=== PATIENT | male | born 1940 | race Caucasian/White ===

== ENCOUNTER → 2017-12-17 10:41 | Outpatient (CLI) | payer OTHER, SELFPAY ==
[2017-12-17 12:03] LABS: Alanine Aminotransferase 132 IU/L (21-72); Albumin 4.1 g/dL (3.5-5.0); Albumin Globulin Ratio 1.2 (1.0-2.8); Alkaline Phosphatase 97 U/L (38-126); Aspartate Aminotransferase 119 IU/L (17-59); BUN Creatinine Ratio 21.2 (6-22); Bilirubin Total 0.5 mg/dL (0.2-1.3); Blood Urea Nitrogen 36 mg/dL (9-20); Carbon Dioxide 29 mmol/L (22-32); Chloride 102 mmol/L (98-107); Estimated Glomerular Filt Rate 39.2 mL/min (>60); Globulin 3.3 g/dL (1.7-4.1); Glucose 102 mg/dL (80-110); HEMOLYSIS 17 (0-50); Potassium 4.7 mmol/L (3.4-5.1); Sodium 140 mmol/L (137-145); Total Protein 7.4 g/dL (6.3-8.2)
== END ==
PROVIDERS: Family Provider Internal Medicine; PCP Internal Medicine; Visit Provider Internal Medicine
DX: E11.9 Type 2 diabetes mellitus without complications (principal); E78.2 Mixed hyperlipidemia; I25.10 Atherosclerotic heart disease of native coronary artery without angina pectoris
CPT/HCPCS: 36415; 80053; 83036

== ENCOUNTER → 2018-06-17 11:09 | Outpatient (CLI) | payer OTHER, SELFPAY ==
[2018-06-17 12:03] LABS: Hemoglobin A1C% w Est Avg Glu 5.5 % (4.0-6.0)
[2018-06-17 12:20] LABS: Alanine Aminotransferase 125 IU/L (21-72); Albumin Globulin Ratio 1.3 (1.0-2.8); Alkaline Phosphatase 88 U/L (38-126); Aspartate Aminotransferase 103 IU/L (17-59); BUN Creatinine Ratio 26.3 (6-22); Bilirubin Total 0.5 mg/dL (0.2-1.3); Blood Urea Nitrogen 42 mg/dL (9-20); Calcium 9.7 mg/dL (8.4-10.2); Carbon Dioxide 27 mmol/L (22-32); Chloride 102 mmol/L (98-107); Cholesterol 146 mg/dL (140-199); Globulin 3.2 g/dL (1.7-4.1); Glucose 101 mg/dL (80-110); HDL Cholesterol 30 mg/dL (40-60); HEMOLYSIS < 15 (0-50); LDL Cholesterol Calculated 98 mg/dL (<100); Potassium 4.7 mmol/L (3.4-5.1); Sodium 138 mmol/L (137-145); Total Protein 7.2 g/dL (6.3-8.2); Triglycerides 91 mg/dL (35-150)
[2018-06-19 18:18] LABS: PSA Post Prostatectomy <0.02 ng/mL
== END ==
PROVIDERS: PCP Internal Medicine; Visit Provider Internal Medicine
DX: E11.9 Type 2 diabetes mellitus without complications (principal); E78.2 Mixed hyperlipidemia; I25.10 Atherosclerotic heart disease of native coronary artery without angina pectoris; C61 Malignant neoplasm of prostate
CPT/HCPCS: 36415; 80053; 80061; 83036; 84153

== ENCOUNTER → 2018-10-31 15:24 | Outpatient (CLI) | payer OTHER, SELFPAY ==
[2018-10-31 15:38] LABS: RBC Urine None Seen (0-5/HPF)
[2018-10-31 15:50] LABS: Appearance Urine UA CLEAR; Bilirubin Urine UA NEGATIVE (NEGATIVE); Color Urine UA YELLOW; Glucose Urine UA NEGATIVE (Negative); Ketones Urine UA NEGATIVE (NEGATIVE); Leukocyte Esterase Urine UA 1+ (NEGATIVE); Nitrite Urine UA NEGATIVE (Negative); Occult Blood Urine UA NEGATIVE (Negative); Protein Urine UA NEGATIVE (Negative); Urobilinogen Urine UA 0.2 E.U./dL (0.2); pH Urine UA 6.5 (4.5-8.0)
[2018-10-31 16:11] LABS: Bacteria Urine Many (>30); Culture Indicated Urine Specimen Cultured; Squamous Epithelial Cell Urine 0-1 /HPF (0-5/HPF); WBC Urine 10-30/HPF (0-5/HPF)
== END ==
PROVIDERS: PCP Internal Medicine; Visit Provider Internal Medicine
DX: R30.0 Dysuria (principal)
CPT/HCPCS: 81001; 87077; 87086; 87186

== ENCOUNTER 2018-12-23 19:36 | Emergency (ER) | payer OTHER, SELFPAY ==
[2018-12-23] VITALS (12 sets, daily range): BP systolic 111–140; BP diastolic 38–75; PULSE 58–76; RESP 12–18; TEMP 36.3–36.8; O2SAT 93–100
--- NOTE | 2018-12-23 19:36 | ED.GIBLEED ---
HPI - GI Bleed General Chief complaint: GI Bleed Stated complaint: Vomiting Blood & Chest PX Time Seen by Provider: 12/23/18 19:36 Source: patient Mode of arrival: Ambulatory Limitations: no limitations History of Present Illness HPI Narrative: 78-year-old male comes to the emergency department with complaint of vomiting blood. Patient states he had an episode last night and has continued to have several episodes overnight. He has also had diarrhea with what he describes as black stool. He states it his emesis was black as well. Patient denies any syncope he felt maybe a little bit lightheaded potentially a little bit off balance. He denies any chest pressure or pain currently but states he did have some earlier. He states he gets chest pain every single day and he takes isosorbide and that makes better overnight. He states that this was his typical chest pain that he gets every single day. He took his using nitro and he states it resolved. He denies any shortness of breath, he denies any nausea at this moment. He denies any abdominal pain. patient states he contacted 911 because he was concerned if he continued to vomit and have bloody stools overnight he might be too weak to contact them in the morning. Patient takes an aspirin 324 mg daily. He denies any other blood thinners. He has had a CABG about 20 years ago, he takes blood pressure and cholesterol medication. He also takes metformin. Patient is not aware of any history of GI bleeds or peptic ulcers. States he used to smoke quit 30 years ago, drinks 1 alcoholic drink monthly and denies illicit. He has had prostate surgery as well and a left carotid endarterectomy. Related Data Home Medications Medication Instructions Recorded Confirmed [FOLIC ACID] 400 mcg PO DAILY #0 11/23/10 12/05/18 aspirin 325 mg PO QDAY #0 06/16/12 12/05/18 atenolol 100 mg PO DAILY 12/23/18 12/23/18 hydrochlorothiazide 25 mg PO DAILY 12/23/18 12/23/18 losartan 100 mg PO DAILY 12/23/18 12/23/18 nitroglycerin [Nitrostat] 0.4 mg SUBLINGUAL Q5M PRN 12/23/18 12/23/18 trazodone 50 mg PO BEDTIME 12/23/18 12/23/18 Previous Rx's Medication Instructions Recorded Glucose: Test Strips str TOPICAL Q DAY #50 06/17/17 isosorbide mononitrate 10 - 15 mg PO QAM #30 tab 06/17/17 metformin 500 mg tablet 500 mg PO BIDCC #180 tab 12/16/17 zolpidem 5 mg tablet 5 mg PO HS PRN #30 tab 09/19/18 lisinopril 20 mg tablet 40 mg PO BID #360 tab 11/25/18 valsartan 160 mg tablet 160 mg PO DAILY #30 tab 12/05/18 Allergies Allergy/AdvReac Type Severity Reaction Status Date / Time amlodipine AdvReac Mild hip pain, Verified 12/05/18 08:43 leg pain, edema feet hands atorvastatin AdvReac Mild JOINT PAIN Verified 12/05/18 08:43 Plavix? Allergy Severe BODY Uncoded 12/05/18 08:43 SHAKES Review of Systems Review of Systems ROS Unobtainable: All systems reviewed & are unremarkable except as noted in HPI and below Constitutional Constitutional: Denies chills, Denies fever(s), Denies lethargy and Reports weakness Cardiovascular Cardiovascular: Reports chest pain (Resolved), Denies diaphoresis, Denies syncope, Denies edema, Denies irregular heart rhythm, Reports lightheadedness, Denies palpitations, Denies dyspnea, Denies dyspnea on exertion and Denies orthopnea Respiratory Respiratory: Denies change in phlegm color, Denies chest congestion, Denies cough, Denies hemoptysis, Denies dyspnea and Denies dyspnea on exertion Gastrointestinal Gastrointestinal: Denies abdominal pain, Reports melena, Denies change in bowel habits, Denies constipation, Reports diarrhea, Denies nausea, Reports vomiting and Reports hematemesis (Black in color) Genitourinary Genitourinary: Denies hematuria, Denies dysuria, Denies flank pain, Denies urinary frequency, Denies urinary incontinence and Denies urinary urgency Musculoskeletal Musculoskeletal: Denies back pain Neurologic Neurologic: Denies syncope and Reports weakness Endocrine Endocrine: Denies palpitations Patient History Medical History Abnormal liver function tests (Chronic 11/23/10) Benign prostatic hyperplasia (Chronic 11/23/10) Coronary artery disease involving [place] coronary artery of [place] heart without angina pectoris (Chronic) Essential hypertension (Chronic 12/29/15) Malignant neoplasm of prostate (Chronic 06/17/17) Mixed hyperlipidemia (Chronic) Type 2 diabetes mellitus without complication (Chronic 09/29/13) Uncontrolled type 2 diabetes mellitus (Chronic 05/08/13) Surgical History History of carotid endarterectomy (Resolved ~10/2015) Status post coronary artery bypass graft (~2002) Status post radical cystoprostatectomy (~07/2012) Social History marital status: number of children: 1 household members: none lives independently: Yes caregiver/support person: No housing: house pets and animals: No education level: high school occupational status: other 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 HEENT: Atraumatic, pupils are equal round reactive to light, extraocular movements are intact, positive conjunctival pallor, nares are clear. Throat is clear without any exudates, erythema, tonsillar enlargement or uvular deviation HEART: Regular rate and rhythm without murmur, clicks, rubs. Pulses are equal in upper and lower extremities LUNGS:Lungs clear to auscultation, no wheezes, rales, crackles, chest moves symmetrically ABD:bowel sounds normal, soft, non-tender, no guarding, rebound, rigidity, no masses noted, no hepatosplenomegaly, stool occult is positive. Patient has melanotic stool on exam. No mass noted. :No CVA tenderness MSCL: Non-tender, no muscle atrophy, muscles strength 5/5 upper and lower extremities, full range of motion, normal gait NEURO:CN 2-12 intact, sensation normal, reflexes 2/4 upper and lower extremities. finger nose finger test normal, heel sandoval test normal, romberg normal Initial Vital Signs Initial Vital Signs: Vital Signs Temperature 97.6 F 12/23/18 19:48 Pulse Rate 76 12/23/18 19:48 Respiratory Rate 18 12/23/18 19:48 Blood Pressure 111/75 12/23/18 19:48 Pulse Oximetry 100 12/23/18 19:48 Course Orders Ordered: ED Orders 12/23/18 19:28 Complete Blood Count AUTO DIFF Stat Comprehensive Metabolic Panel Stat Lipase Stat Packed Cells Stat Partial Thromboplastin Time Stat Prothrombin Time INR Stat Troponin I Stat Type and Screen Stat 12/23/18 19:52 XR acute abdomen series Stat Discontinued Medications Sodium Chloride (Normal Saline 0.9%) 1,000 mls @ 150 mls/hr IV CONT KRISTINA Last Infusion: 12/23/18 23:34 Dose: 0 mls/hr Documented by: Admin: 12/23/18 20:05 Dose: 150 mls/hr Documented by: GLORIA Pantoprazole Sodium 80 mg/ (Sodium Chloride) 100 mls @ 10 mls/hr IV CONT KRISTINA Last Infusion: 12/23/18 23:35 Dose: 0 mg/hr, 0 mls/hr Documented by: Admin: 12/23/18 20:31 Dose: 8 mg/hr, 10 mls/hr Documented by: GLORIA Ondansetron HCl (Zofran) 4 mg IV NOW ONE Stop: 12/23/18 19:53 Last Admin: 12/23/18 20:04 Dose: 4 mg Documented by: GLORIA Pantoprazole Sodium (Protonix) 80 mg IV NOW ONE Stop: 12/23/18 19:53 Last Admin: 12/23/18 20:04 Dose: 80 mg Documented by: GLORIA Vital Signs Vital signs: Vital Signs - 8 hr 12/23/18 19:48 12/23/18 20:00 12/23/18 20:27 Temperature 97.6 F Pulse Rate 76 68 66 Respiratory Rate 18 18 18 Blood Pressure 111/75 Blood Pressure [Left Wrist] 122/45 L 118/45 L Pulse Oximetry 100 93 100 12/23/18 21:05 12/23/18 21:12 12/23/18 21:13 Temperature 97.5 F L 97.4 F L 97.5 F L Pulse Rate 62 60 61 Respiratory Rate 16 16 18 Blood Pressure 113/42 L 120/38 L Blood Pressure [Left Wrist] 113/42 L Pulse Oximetry 100 12/23/18 21:20 12/23/18 22:03 12/23/18 22:30 Temperature 97.4 F L 97.6 F Pulse Rate 58 L 60 61 Respiratory Rate 16 16 13 Blood Pressure 114/42 L Blood Pressure [Left Wrist] 126/47 L 140/51 L Pulse Oximetry 100 100 12/23/18 22:52 12/23/18 23:07 12/23/18 23:20 Temperature 97.9 F 98.3 F Pulse Rate 62 60 62 Respiratory Rate 16 12 18 Blood Pressure 140/51 L 127/48 L Blood Pressure [Left Wrist] 123/50 L Pulse Oximetry 100 MDM - GI Bleed Lab Data Attestation: I reviewed the patient's lab results. Result diagrams: 12/23/18 19:28 12/23/18 19:28 Labs: Lab Results 12/23/18 12/23/18 12/23/18 Range/Units 19:28 19:28 19:28 WBC 10.3 (4.5-11.0) X10^3/uL RBC 2.58 L (4.5-5.9) X10^6/uL Hgb 7.7 L (13.5-17.5) g/dL Hct 23.3 L (41-53) % MCV 90.2 (80-100) fL MCH 30.0 (26-34) PG MCHC 33.2 (30-36) % RDW 15.9 H (11.6-14.8) % Plt Count 125 L (150-400) X10^3/uL Neut % (Auto) 44.3 L (50-75) % Lymph % (Auto) 44.9 H (25-40) % [place] % (Auto) 10.0 (3-14) % Eos % (Auto) 0.3 L (2-4) % Baso % (Auto) 0.5 (0-2) % Neut # (Auto) 4600 (7101-6031) /uL Lymph # (Auto) 4600 H (4201-2965) /uL [place] # (Auto) 1000 H (0-900) /uL Eos # (Auto) 0 (0-450) /uL Baso # (Auto) 100 (0-100) /uL PT 10.7 (10.1-12.7) SECONDS INR 0.9 (0.9-1.3) APTT 28 (26.4-36.2) SECONDS Sodium (137-145) mmol/L Potassium (3.4-5.1) mmol/L Chloride (98-107) mmol/L Carbon Dioxide (22-32) mmol/L BUN (9-20) mg/dL Creatinine (0.66-1.25) mg/dL Estimated GFR (>60) mL/min BUN/Creatinine Ratio (6-22) Glucose (80-110) mg/dL Calcium (8.4-10.2) mg/dL Total Bilirubin (0.2-1.3) mg/dL AST (17-59) IU/L ALT (21-72) IU/L Alkaline Phosphatase (38-126) U/L Troponin I (0.01-0.034) ng/mL Total Protein (6.3-8.2) g/dL Albumin (3.5-5.0) g/dL Globulin (1.7-4.1) g/dL Albumin/Globulin Ratio (1.0-2.8) Lipase 274 (23-300) U/L Blood Type Antibody Screen Crossmatch 12/23/18 12/23/18 12/23/18 Range/Units 19:28 19:28 19:28 WBC (4.5-11.0) X10^3/uL RBC (4.5-5.9) X10^6/uL Hgb (13.5-17.5) g/dL Hct (41-53) % MCV (80-100) fL MCH (26-34) PG MCHC (30-36) % RDW (11.6-14.8) % Plt Count (150-400) X10^3/uL Neut % (Auto) (50-75) % Lymph % (Auto) (25-40) % [place] % (Auto) (3-14) % Eos % (Auto) (2-4) % Baso % (Auto) (0-2) % Neut # (Auto) (1338-8684) /uL Lymph # (Auto) (8118-4081) /uL [place] # (Auto) (0-900) /uL Eos # (Auto) (0-450) /uL Baso # (Auto) (0-100) /uL PT (10.1-12.7) SECONDS INR (0.9-1.3) APTT (26.4-36.2) SECONDS Sodium 136 L (137-145) mmol/L Potassium 4.4 (3.4-5.1) mmol/L Chloride 102 (98-107) mmol/L Carbon Dioxide 23 (22-32) mmol/L BUN 90 H (9-20) mg/dL Creatinine 2.20 H (0.66-1.25) mg/dL Estimated GFR 29.0 L (>60) mL/min BUN/Creatinine Ratio 40.9 H (6-22) Glucose 174 H (80-110) mg/dL Calcium 9.7 (8.4-10.2) mg/dL Total Bilirubin 0.3 (0.2-1.3) mg/dL AST 71 H (17-59) IU/L ALT 73 H (21-72) IU/L Alkaline Phosphatase 81 (38-126) U/L Troponin I 0.146 H* (0.01-0.034) ng/mL Total Protein 6.6 (6.3-8.2) g/dL Albumin 3.5 (3.5-5.0) g/dL Globulin 3.1 (1.7-4.1) g/dL Albumin/Globulin Ratio 1.1 (1.0-2.8) Lipase (23-300) U/L Blood Type O Positive Antibody Screen Negative Crossmatch See Detail Point of Care Testing Stool Occult Blood Positive ECG Data Attestation: I personally reviewed and interpreted this ECG as follows: Prior ECG tracings: available for review Interpretation: Sinus rhythm kill PVCs, right bundle branch block. Rate of 74 P are 199 QRS of 147 QTC of 467. The patient does appear to have some depression in 1 aVL as well as 5 6 which does appear different from prior EKGs. Patient has a right bundle branch block on his 07/07/2016 EKG. Patient does appear to have some elevation in AVR this does appear somewhat similar to prior EKG. [facility] Narrative Medical decision making narrative: Patient comes in with EKG changes some which do appear new, this could potentially be demand ischemia from his known coronary artery disease drop in hemoglobin which was 12.7 on July 07, 2016 at 7.7 today. Patient did try to stand up and had a near syncopal episode in the department. Platelets are 125. Patient's BUN is 90 which is elevated from his normal range of 30-40. Creatinine is also elevated at 2.2 looks like his baseline is closer to 1.7 patient's glucose is 174. AST ALT are slightly elevated at 71 and 73, alk-phos and bilirubin are normal with a normal lipase. Troponin is positive. this may be secondary to demand ischemia patient was not giving any anticoagulation as he has clearly dropped his hemoglobin has positive rectal bleeding. Patient will likely need Gastroenterology which we do not have available here and may also need cardiology based on his EKG changes and troponin and likely demand ischemia. Patient has 2 units PRBCs ordered. Continuing with slow fluids and patient started on initially Protonix 80 mg and then a drip. I spoke with Dr. Juarez at [facility] and telling him, he would like me to speak with gastroenterology with Dr. Hoyt. Patient case was discussed that he is having demand ischemia secondary to his GI bleed. Discussed he has had Protonix as well as Protonix drip started and is receiving blood at this time. Spoke with Dr. Hoyt, she states that the patient was seen by Dr. David Perry since in 2001 and that that would be the other Gastroenterology group and she asked me to speak with Dr. De Jesus who was at [phone] I spoke with Dr. De Jesus, he states he is happy to see the patient but would like to chat with the hospitalist to see if they would like for him to see the patient tonight or 1st thing in the morning. Dr. wan states that he will chat with Dr. Juarez to clarify. Discussed with patient and updated he is comfortable with plan. Patient has received the 1st unit of blood in the department, blood pressure is been in the 120s with a rate of 60. Second unit has been started. Patient has been hemodynamically stable. Critical Care Time Critical Care Time Critical Care Time: Yes Total Critical Care Time: 75 Attestation: The high probability of a clinically significant, sudden or life threatening deterioration of the [cardiac/gi] system(s) required my full and direct attention, intervention and personal management. The aggregate critical care time was [75] minutes. This time is in addition to time spent performing reported procedures but includes the following: [x] Data Review and interpretation xPatient assessment and monitoring of vital signs [x] Documentation [x] Medication orders and management Discharge Plan [facility]: Acute GI bleeding, Demand ischemia, Symptomatic anemia Discharge Date/Time: 12/23/18 23:38 Prescriptions: No Action [FOLIC ACID] 400 mcg PO DAILY Qty: 0 RF: 0 aspirin 325 MG tablet,delayed release (DR/EC) 325 mg PO QDAY Qty: 0 RF: 0 isosorbide mononitrate 30 MG tablet extended release 24 hr 10 - 15 mg PO QAM Qty: 30 RF: 11 Glucose: Test Strips Topical Q DAY Qty: 50 RF: 6 lisinopril 20 mg tablet 40 mg PO BID Qty: 360 RF: 1 metformin [Glucophage] 500 mg tablet 500 mg PO BIDCC Qty: 180 RF: 3 zolpidem 5 mg tablet 5 mg PO HS PRN (Reason: insomnia) Qty: 30 RF: 1 valsartan 160 mg tablet 160 mg PO DAILY Qty: 30 RF: 8 nitroglycerin [Nitrostat] 0.4 mg Tablet, Sublingual 0.4 mg SUBLINGUAL Q5M PRN (Reason: Chest Pain) RF: 0 trazodone 50 mg PO BEDTIME RF: 0 atenolol 100 mg Tablet 100 mg PO DAILY RF: 0 losartan 100 mg PO DAILY RF: 0 hydrochlorothiazide 25 mg Tablet 25 mg PO DAILY RF: 0 Referrals: Dimas Hahn MD [Primary Care Provider] -
--- NOTE | 2018-12-23 19:52 | DI.RAD.S_ITS ---
PROCEDURE: XR ACUTE ABDOMEN SERIES INDICATIONS: melena, vomiting black blood TECHNIQUE: One view chest and two views of the abdomen were acquired. COMPARISON: None. FINDINGS: Surgical changes and devices: Patient is status post median sternotomy. Surgical clips are projected over the inferior pelvis. Chest: Lungs are clear. Heart size is normal. No pleural effusions. No pneumoperitoneum. Abdomen: Bowel gas pattern is normal. No suspicious calcifications. Visualized solid organ contours appear normal. Bones: No suspicious bony lesions. IMPRESSION: No acute cardiopulmonary findings. No acute abdominal findings. Dictated by: Erika Raymond M.D. on 12/23/2018 at 20:27 Approved by: Erika Raymond M.D. on 12/23/2018 at 20:30
[2018-12-23 20:02] LABS: Add Manual Diff / Slide Review NO; Basophils Absolute Auto 100 /uL (0-100); Basophils Percent Auto 0.5 % (0-2); Eosinophils Absolute Auto 0 /uL (0-450); Eosinophils Percent Auto 0.3 % (2-4); Hematocrit 23.3 % (41-53); Hemoglobin 7.7 g/dL (13.5-17.5); Lymphocytes Absolute Auto 4600 /uL (1100-4500); Lymphocytes Percent Auto 44.9 % (25-40); Mean Corpuscular HGB Conc 33.2 % (30-36); Mean Corpuscular Volume 90.2 fL (80-100); Monocytes Absolute Auto 1000 /uL (0-900); Neutrophils Absolute Auto 4600 /uL (1500-7000); Neutrophils Percent Auto 44.3 % (50-75); Platelet Count 125 X10^3/uL (150-400); Red Blood Cell Count 2.58 X10^6/uL (4.5-5.9); Red Cell Distribution Width 15.9 % (11.6-14.8); White Blood Cell Count 10.3 X10^3/uL (4.5-11.0)
[2018-12-23 20:03] LABS: INR 0.9 (0.9-1.3); Prothrombin Time 10.7 SECONDS (10.1-12.7)
[2018-12-23] MEDS: PANTOPRAZOLE 40 MG VIAL 80 MG IV (20:04)
[2018-12-23] MEDS: ONDANSETRON 4 MG/2 ML INJ IV (20:04)
[2018-12-23] MEDS: SODIUM CHLORIDE 0.9% 1,000 ML 150 ML IV (20:05)
[2018-12-23 20:06] LABS: PTT Partial Thromboplastin Tim 28 SECONDS (26.4-36.2)
[2018-12-23 20:08] LABS: Alanine Aminotransferase 73 IU/L (21-72); Albumin 3.5 g/dL (3.5-5.0); Albumin Globulin Ratio 1.1 (1.0-2.8); Alkaline Phosphatase 81 U/L (38-126); Aspartate Aminotransferase 71 IU/L (17-59); BUN Creatinine Ratio 40.9 (6-22); Bilirubin Total 0.3 mg/dL (0.2-1.3); Blood Urea Nitrogen 90 mg/dL (9-20); Calcium 9.7 mg/dL (8.4-10.2); Carbon Dioxide 23 mmol/L (22-32); Chloride 102 mmol/L (98-107); Globulin 3.1 g/dL (1.7-4.1); Glucose 174 mg/dL (80-110); HEMOLYSIS < 15 (0-50); Potassium 4.4 mmol/L (3.4-5.1); Sodium 136 mmol/L (137-145); Total Protein 6.6 g/dL (6.3-8.2)
[2018-12-23 20:09] LABS: Lipase 274 U/L (23-300)
--- NOTE | 2018-12-23 20:12 | PC.NURSE ---
Dr. Rider called to Radiology. Per cytogenetic technologist, the patient stood for an xray and had a syncopal episode. Patient was checked out by Dr. Rider, denies complaints or injuries. Pt is alert and oriented x4 after syncopal episode. Order to transfuse PRBC's received as patient's Hg is 7.
[2018-12-23 20:23] LABS: Troponin I 0.146 ng/mL (0.01-0.034)
--- NOTE | 2018-12-23 20:25 | PC.NURSE ---
Blood consent obtained. Per auto tech, patient was assisted to floor and did not fall to floor.
[2018-12-23] MEDS: PANTOPRAZOLE 80 MG in SODIUM CHLORIDE 0.9% 100 ML 10 ML IV (20:31)
--- NOTE | 2018-12-23 21:11 | PC.NURSE ---
Patient to be transferred to [facility] in [place]. PRBC's unit 1 infusing. Patient instructed to press call light for any changes in how he's feeling. Call light within reach. Blood infusing without s/sx of transfusion reaction. See TAR
--- NOTE | 2018-12-23 23:19 | PC.NURSE ---
Transport team transferred pt with blood infusing
== END 2018-12-23 23:38 | disposition short-term general hospital (02) ==
PROVIDERS: Emergency Provider Emergency Medicine; PCP Internal Medicine
DX: K92.2 Gastrointestinal hemorrhage, unspecified (principal); I24.8 Other forms of acute ischemic heart disease; D64.89 Other specified anemias
CPT/HCPCS: 36415; 36430; 74022; 80053; 82272; 83690; 84484; 85025; 85610; 85730; 86850; 86900; 86901; 93005; 96365; 96366; 96375; 99284; 99291; P9016; C9113; J2405

== ENCOUNTER → 2019-01-01 10:55 | Outpatient (CLI) | payer OTHER, SELFPAY ==
[2019-01-01 11:23] LABS: Hematocrit 26.4 % (41-53); Hemoglobin 8.7 g/dL (13.5-17.5)
[2019-01-01 11:57] LABS: BUN Creatinine Ratio 20.8 (6-22); Blood Urea Nitrogen 50 mg/dL (9-20); Calcium 9.1 mg/dL (8.4-10.2); Carbon Dioxide 19 mmol/L (22-32); Chloride 111 mmol/L (98-107); Estimated Glomerular Filt Rate 26.2 mL/min (>60); Glucose 154 mg/dL (80-110); HEMOLYSIS < 15 (0-50); Sodium 141 mmol/L (137-145)
[2019-01-01 12:00] LABS: Potassium 5.9 mmol/L (3.4-5.1)
== END ==
PROVIDERS: Visit Provider Internal Medicine
DX: D64.9 Anemia, unspecified (principal); K92.2 Gastrointestinal hemorrhage, unspecified
CPT/HCPCS: 36415; 80048; 85014; 85018

== ENCOUNTER 2019-01-31 15:00 | Emergency (ER) | payer OTHER, SELFPAY ==
[2019-01-31] VITALS (7 sets, daily range): BP systolic 109–140; BP diastolic 73–87; PULSE 67–79; RESP 17–28; TEMP 35.8; O2SAT 96–100; BMI 22.1
--- NOTE | 2019-01-31 15:08 | DI.RAD.S_ITS ---
PROCEDURE: XR CHEST 1V INDICATIONS: weakness TECHNIQUE: One view of the chest was acquired. COMPARISON: [facility], CHEST 2 VIEW, 06/16/2012, 14:58. [facility], CHEST 1 VIEW, 11/26/2014, 12:03. [facility], CHEST 2 VIEW, 12/31/2014, 13:09. [facility], CHEST 2 VIEW, 05/09/2015, 10:27. FINDINGS: Surgical changes and devices: Post CABG changes are seen. Lungs and pleura: Small bilateral pleural effusions are seen. No pneumothorax is seen. Low lung volumes are noted. This causes a crowded appearance to the lung markings and limits evaluation. Mediastinum: Mediastinal contours appear normal. Heart size is moderately enlarged. Atherosclerotic calcification of the aortic arch is noted. Bones and chest wall: No suspicious bony lesions. Age-appropriate bony degenerative changes are seen. Overlying soft tissues appear unremarkable. IMPRESSION: Small bilateral pleural effusions. Low lung volumes. Postoperative and degenerative changes are seen. Dictated by: Ricardo Roman M.D. on 01/31/2019 at 14:34 Approved by: Ricardo Roman M.D. on 01/31/2019 at 14:36
[2019-01-31 15:15] LABS: Add Manual Diff / Slide Review NO; Basophils Absolute Auto 100 /uL (0-100); Basophils Percent Auto 1.1 % (0-2); Eosinophils Absolute Auto 0 /uL (0-450); Eosinophils Percent Auto 0.4 % (2-4); Hemoglobin 11.2 g/dL (13.5-17.5); Lymphocytes Absolute Auto 2400 /uL (1100-4500); Lymphocytes Percent Auto 32.4 % (25-40); Mean Corpuscular HGB Conc 29.5 % (30-36); Mean Corpuscular Hemoglobin 28.2 PG (26-34); Mean Corpuscular Volume 95.5 fL (80-100); Monocytes Absolute Auto 600 /uL (0-900); Monocytes Percent Auto 7.8 % (3-14); Neutrophils Absolute Auto 4300 /uL (1500-7000); Neutrophils Percent Auto 58.3 % (50-75); Platelet Count 95 X10^3/uL (150-400); Red Blood Cell Count 3.99 X10^6/uL (4.5-5.9); Red Cell Distribution Width 18.6 % (11.6-14.8); White Blood Cell Count 7.3 X10^3/uL (4.5-11.0)
--- NOTE | 2019-01-31 15:20 | DI.CT.S_ITS ---
PROCEDURE: CT HEAD/BRAIN WO CON INDICATIONS: confusion slurred speech TECHNIQUE: Noncontrast 4.5 mm thick angled axial sections acquired from the foramen magnum to the vertex, with coronal and sagittal reformats. For radiation dose reduction, the following was used: automated exposure control, adjustment of mA and/or kV according to patient size. COMPARISON: [facility], CR, XR CHEST 1V, 01/31/2019, 15:11. FINDINGS: Image quality: Excellent. CSF spaces: Basal cisterns are patent. No extra-axial fluid collections. The ventricles are symmetric in size and shape. Brain: No intracranial bleeds or masses. There is cerebral volume loss for age, with resultant ventricular and sulcal prominence. There are periventricular and deep white matter chronic small vessel ischemic changes. There is intracranial internal carotid artery atherosclerosis. Skull and face: Calvarium and visualized facial bones appear intact, without suspicious lesions. Sinuses: Visualized sinuses and mastoids are clear. IMPRESSION: No acute intracranial hemorrhage is seen. No CT findings of stroke are detected. If there is strong clinical suspicion for an acute stroke, please consider an MRI for further evaluation, as it is more sensitive (assuming that there is no contraindication to MRI). Note is made of age-appropriate brain parenchymal volume loss and chronic small vessel ischemic changes. Dictated by: Ricardo oRman M.D. on 01/31/2019 at 14:52 Approved by: Ricardo Roman M.D. on 01/31/2019 at 14:53
--- NOTE | 2019-01-31 15:23 | PC.NURSE ---
[place] has had diarrhea for several days, increase weakness. Nausea no vomiting. Hospitalized 12/24 at [facility] for acute GI bleed got three units blood. Patient son repeats he sounds drunk to me doesn't normally sound like that. Caregiver reports a period of time where he was sitting upright in chair labored breathing and unresponsive
[2019-01-31 15:28] LABS: INR 1.3 (0.9-1.3); Prothrombin Time 14.8 SECONDS (10.1-12.7)
[2019-01-31 15:31] LABS: PTT Partial Thromboplastin Tim 25 SECONDS (26.4-36.2)
[2019-01-31 15:32] LABS: Albumin 3.7 g/dL (3.5-5.0); Albumin Globulin Ratio 1.2 (1.0-2.8); Alkaline Phosphatase 63 U/L (38-126); Aspartate Aminotransferase 54 IU/L (17-59); BUN Creatinine Ratio 14.1 (6-22); Bilirubin Total 0.7 mg/dL (0.2-1.3); Blood Urea Nitrogen 52 mg/dL (9-20); Calcium 8.9 mg/dL (8.4-10.2); Carbon Dioxide 12 mmol/L (22-32); Chloride 111 mmol/L (98-107); Creatine Kinase 74 U/L (55-170); Estimated Glomerular Filt Rate 15.9 mL/min (>60); Globulin 3.2 g/dL (1.7-4.1); Glucose 221 mg/dL (80-110); Lipase 372 U/L (23-300); Sodium 140 mmol/L (137-145); Total Protein 6.9 g/dL (6.3-8.2)
[2019-01-31 15:39] LABS: Alanine Aminotransferase 38 IU/L (<50)
--- NOTE | 2019-01-31 15:39 | ED.NEUROSD ---
HPI - Neuro Symptoms/Deficit General Chief Complaint: Neuro Symptoms/Deficit Stated Complaint: Altered mental status Time Seen by Provider: 01/31/19 15:04 Source: patient and EMS Mode of arrival: EMS History of Present Illness HPI Narrative: Patient is a 78-year-old male who presents with altered mental status. He was recently transferred to telling him on December 23 for GI bleed, elevated tripped and anemia. Troponin was felt to be due to demand ischemia and not coronary artery. Today he presents per caregiver of difficulty speaking and generalized weakness. The caregiver just met him 2 days ago she has been helping him out as a favor to her mother. She states that he has had diarrhea for at least the last 10 days he has no abdominal pain. He generally feels weak he has no chest pain no shortness of breath no heart palpitations. He overall is extremely poor historian. His son is also at bedside. He states that he calls them from the [facility] and talks to him every couple of weeks. Patient is able to follow commands his mouth is extremely dry Related Data Home Medications Medication Instructions Recorded Confirmed [FOLIC ACID] 400 mcg PO DAILY #0 11/23/10 01/01/19 aspirin 325 mg PO QDAY #0 06/16/12 01/01/19 atenolol 100 mg PO DAILY 12/23/18 01/01/19 nitroglycerin [Nitrostat] 0.4 mg SUBLINGUAL Q5M PRN 12/23/18 01/01/19 trazodone 50 mg PO BEDTIME 12/23/18 01/01/19 Previous Rx's Medication Instructions Recorded Glucose: Test Strips str TOPICAL Q DAY #50 06/17/17 isosorbide mononitrate 10 - 15 mg PO QAM #30 tab 06/17/17 metformin 500 mg tablet 500 mg PO BIDCC #180 tab 12/16/17 zolpidem 5 mg tablet 5 mg PO HS PRN #30 tab 09/19/18 lisinopril 20 mg tablet 40 mg PO BID #360 tab 11/25/18 Allergies Allergy/AdvReac Type Severity Reaction Status Date / Time amlodipine AdvReac Mild hip pain, Verified 01/31/19 15:06 leg pain, edema feet hands atorvastatin AdvReac Mild JOINT PAIN Verified 01/31/19 15:06 Plavix? Allergy Severe BODY Uncoded 01/01/19 10:14 SHAKES Review of Systems Review of Systems ROS Unobtainable: All systems reviewed & are unremarkable except as noted in HPI and below Constitutional Constitutional: Reports lethargy and Reports weakness Eyes Eyes: Denies change in vision, Denies eye discharge, Denies irritation and Denies loss of vision ENT Ears, Nose, Mouth, and Throat: Denies change in voice, Denies neck pain and Denies sore throat Cardiovascular Cardiovascular: Denies chest pain, Denies rapid heart rate, Denies lightheadedness, Denies dyspnea and Denies dyspnea on exertion Respiratory Respiratory: Denies cough, Denies dyspnea, Denies dyspnea on exertion and Denies wheezing Gastrointestinal Gastrointestinal: Denies abdominal pain, Reports diarrhea and Denies nausea Musculoskeletal Musculoskeletal: Denies neck pain Integumentary/Breasts Skin/Breast: Denies pruritus, Denies erythema, Denies rash and Denies wounds Neurologic Neurologic: Denies loss of vision and Reports weakness Allergic/Immunologic Allergic/Immunologic: Denies wheezing Patient History Medical History Abnormal liver function tests (Chronic 11/23/10) Benign prostatic hyperplasia (Chronic 11/23/10) Chronic renal failure, stage 3 (moderate) (Chronic) Coronary artery disease involving [place] coronary artery of [place] heart without angina pectoris (Chronic) Essential hypertension (Chronic 12/29/15) Malignant neoplasm of prostate (Chronic 06/17/17) Mixed hyperlipidemia (Chronic) Type 2 diabetes mellitus without complication (Chronic 09/29/13) Uncontrolled type 2 diabetes mellitus (Chronic 05/08/13) Surgical History History of carotid endarterectomy (Resolved ~10/2015) Status post coronary artery bypass graft (~2002) Status post radical cystoprostatectomy (~07/2012) Family History Brother Family hx colonic polyps Social History marital status: number of children: 1 household members: none lives independently: Yes caregiver/support person: No housing: house pets and animals: No education level: high school occupational status: other 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, [employer]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) caleb/church: None travel history: other leisure activities: other Smoking Status: Former smoker Tobacco: How many years used: 25 Smokeless tobacco user: other quit status: quit date established second hand exposure: No alcohol intake: current substance use type: does not use alcohol intake frequency: a few times a month Substance Use Type: does not use Exam Initial Vital Signs Initial Vital Signs: Vital Signs Temperature 96.4 F L 01/31/19 15:06 Pulse Rate 79 01/31/19 15:06 Respiratory Rate 17 01/31/19 15:06 Blood Pressure 128/87 01/31/19 15:06 Pulse Oximetry 96 01/31/19 15:06 GENERAL: Alert week elderly male HEENT: Head atraumatic,EOMI, pupils reactive, face symmetric, extremely dry mucous membranes CARDIOVASCULAR: Regular rate and rhythm without murmurs, rubs or gallops. RESPIRATORY: Breath sounds equal bilaterally, no wheezes rales or rhonchi. ABDOMEN: Soft, nontender. Normoactive bowel sounds all 4 quadrants. No guarding or rebound. EXTREMITIES: Normal range of motion, no clubbing or edema. Neurovascularly intact NEUROLOGICAL: Alert and oriented x person. 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 No gross deficits SKIN: Warm, dry, no laceration, no petechiae, no rashes or lesions. Scores GCS [place] coma scale eye opening: Spontaneous [place] coma scale verbal response: Confused [place] coma scale motor response: Obey commands [place] coma scale total score: 14 qSOFA Altered Mental Status (GCS <15): Yes Respiratory rate greater than/equal to 22: Yes Systolic blood pressure less than or equal to 100: No qSOFA Total: 2 0-1 Not High Risk 1-3 High risk SOFA SaO2/FIO2: 221-301 Platelets: < 100 Bilirubin: < 1.2 mg/dL Hypotension: MAP >= 70 mmHg [place] Coma Scale: 13-14 Renal: Creatinine 3.5-4.9 mg/dL or UOP <500 mL SOFA Score: 7 Course Orders Ordered: ED Orders 01/31/19 15:04 B Type Natriuretic Peptide Stat Complete Blood Count AUTO DIFF Stat Comprehensive Metabolic Panel Stat Lipase Stat Partial Thromboplastin Time Stat Procalcitonin Stat Prothrombin Time INR Stat Troponin & CK Cardiac Panel Stat 01/31/19 15:08 XR chest 1V Stat EKG-12 Lead Stat 01/31/19 15:20 CT head/brain wo con Stat 01/31/19 15:34 Blood Culture Stat Lactate (Lactic Acid) Stat Sodium Chloride (Normal Saline 0.9%) 1,000 mls @ 150 mls/hr IV CONT KRISTINA Last Infusion: 01/31/19 17:22 Dose: 0 mls/hr Documented by: Admin: 01/31/19 16:25 Dose: 999 mls/hr Documented by: DULCE Lactated Ringer's (Lactated Ringers) 2,218.08 mls @ 739.36 mls/hr 30 ml/kg infuse over 3 hr (2218.08 ml) IV NOW ONE Stop: 01/31/19 19:34 Last Infusion: 01/31/19 18:45 Dose: 500 mls/hr Documented by: Admin: 01/31/19 17:19 Dose: 500 mls/hr Documented by: DULCE Lactated Ringer's (Lactated Ringers) 1,000 mls @ 500 mls/hr IV CONT KRISTINA Last Admin: 01/31/19 18:52 Dose: Not Given Documented by: DULCE Discontinued Medications Dextrose (D50w) 25 gm IV NOW ONE Stop: 01/31/19 16:20 Last Admin: 01/31/19 16:31 Dose: 25 gm Documented by: DULCE Furosemide (Lasix) 40 mg IV NOW ONE Stop: 01/31/19 16:20 Last Admin: 01/31/19 16:31 Dose: 40 mg Documented by: DULCE Piperacillin/Tazobactam/Dextrose (Zosyn) 3.375 gm in 50 mls @ 100 mls/hr IV NOW ONE Stop: 01/31/19 17:57 Last Infusion: 01/31/19 18:50 Dose: 0 mls/hr Documented by: Admin: 01/31/19 18:12 Dose: 100 mls/hr Documented by: DULCE Vancomycin HCl (Vancomycin) 1,000 mg in 200 mls @ 200 mls/hr IV NOW ONE Stop: 01/31/19 18:27 Last Infusion: 01/31/19 18:52 Dose: 200 mls/hr Documented by: Admin: 01/31/19 18:43 Dose: 200 mls/hr Documented by: DULCE Insulin Human Regular (Humulin R) 10 unit IV NOW ONE Stop: 01/31/19 16:20 Last Admin: 01/31/19 16:31 Dose: 10 unit Documented by: DULCE Cosigned by: DEMARIO Consultations Consultation #1: Dr. Reed, symptoms and test results recommends that patient be transferred to higher level of care Time: 16:26 Consultation #2: Dr. Leal accepts patient for transfer. Time: 17:25 Vital Signs Vital signs: Vital Signs - 8 hr 01/31/19 15:06 01/31/19 15:08 01/31/19 16:01 Temperature 96.4 F L Pulse Rate 79 75 70 Respiratory Rate 17 17 Blood Pressure 128/87 Blood Pressure [Right Arm] 128/87 114/77 Pulse Oximetry 96 100 100 01/31/19 16:40 01/31/19 17:00 01/31/19 17:30 Temperature Pulse Rate 68 77 67 Respiratory Rate 25 H 22 25 H Blood Pressure Blood Pressure [Right Arm] 109/81 140/82 128/81 Pulse Oximetry 99 100 97 01/31/19 18:00 Temperature Pulse Rate 67 Respiratory Rate 28 H Blood Pressure Blood Pressure [Right Arm] 140/73 Pulse Oximetry 100 MDM - Neuro Symptoms/Deficit Lab Data Attestation: I reviewed the patient's lab results. Result diagrams: 01/31/19 15:04 01/31/19 15:04 Labs: Lab Results 01/31/19 01/31/19 01/31/19 Range/Units 15:04 15:04 15:04 WBC (4.5-11.0) X10^3/uL RBC (4.5-5.9) X10^6/uL Hgb (13.5-17.5) g/dL Hct (41-53) % MCV (80-100) fL MCH (26-34) PG MCHC (30-36) % RDW (11.6-14.8) % Plt Count (150-400) X10^3/uL Neut % (Auto) (50-75) % Lymph % (Auto) (25-40) % [place] % (Auto) (3-14) % Eos % (Auto) (2-4) % Baso % (Auto) (0-2) % Neut # (Auto) (2727-5282) /uL Lymph # (Auto) (0894-8324) /uL [place] # (Auto) (0-900) /uL Eos # (Auto) (0-450) /uL Baso # (Auto) (0-100) /uL PT 14.8 H (10.1-12.7) SECONDS INR 1.3 (0.9-1.3) APTT 25 L D (26.4-36.2) SECONDS Sodium (137-145) mmol/L Potassium (3.4-5.1) mmol/L Chloride (98-107) mmol/L Carbon Dioxide (22-32) mmol/L BUN (9-20) mg/dL Creatinine (0.66-1.25) mg/dL Estimated GFR (>60) mL/min BUN/Creatinine Ratio (6-22) Glucose (80-110) mg/dL Lactate (0.7-2.1) mmol/L Calcium (8.4-10.2) mg/dL Total Bilirubin (0.2-1.3) mg/dL AST (17-59) IU/L ALT (<50) IU/L Alkaline Phosphatase (38-126) U/L Total Creatine Kinase (55-170) U/L CK-MB (CK-2) CK-MB (CK-2) Rel Index Troponin I (0.01-0.034) ng/mL B-Natriuretic Peptide > 3630 H (<100) Total Protein (6.3-8.2) g/dL Albumin (3.5-5.0) g/dL Globulin (1.7-4.1) g/dL Albumin/Globulin Ratio (1.0-2.8) Lipase (23-300) U/L Procalcitonin 0.14 (<0.5) ng/mL 01/31/19 01/31/19 01/31/19 Range/Units 15:04 15:04 15:34 WBC 7.3 (4.5-11.0) X10^3/uL RBC 3.99 L (4.5-5.9) X10^6/uL Hgb 11.2 L (13.5-17.5) g/dL Hct 38.0 L (41-53) % MCV 95.5 (80-100) fL MCH 28.2 (26-34) PG MCHC 29.5 L (30-36) % RDW 18.6 H (11.6-14.8) % Plt Count 95 L (150-400) X10^3/uL Neut % (Auto) 58.3 (50-75) % Lymph % (Auto) 32.4 (25-40) % [place] % (Auto) 7.8 (3-14) % Eos % (Auto) 0.4 L (2-4) % Baso % (Auto) 1.1 (0-2) % Neut # (Auto) 4300 (3472-6127) /uL Lymph # (Auto) 2400 (9345-3879) /uL [place] # (Auto) 600 (0-900) /uL Eos # (Auto) 0 (0-450) /uL Baso # (Auto) 100 (0-100) /uL PT (10.1-12.7) SECONDS INR (0.9-1.3) APTT (26.4-36.2) SECONDS Sodium 140 (137-145) mmol/L Potassium 6.0 H (3.4-5.1) mmol/L Chloride 111 H (98-107) mmol/L Carbon Dioxide 12 L (22-32) mmol/L BUN 52 H (9-20) mg/dL Creatinine 3.70 H (0.66-1.25) mg/dL Estimated GFR 15.9 L (>60) mL/min BUN/Creatinine Ratio 14.1 (6-22) Glucose 221 H (80-110) mg/dL Lactate 7.6 H* (0.7-2.1) mmol/L Calcium 8.9 (8.4-10.2) mg/dL Total Bilirubin 0.7 (0.2-1.3) mg/dL AST 54 (17-59) IU/L ALT 38 (<50) IU/L Alkaline Phosphatase 63 (38-126) U/L Total Creatine Kinase 74 (55-170) U/L CK-MB (CK-2) TNP CK-MB (CK-2) Rel Index TNP Troponin I 0.240 H* (0.01-0.034) ng/mL B-Natriuretic Peptide (<100) Total Protein 6.9 (6.3-8.2) g/dL Albumin 3.7 (3.5-5.0) g/dL Globulin 3.2 (1.7-4.1) g/dL Albumin/Globulin Ratio 1.2 (1.0-2.8) Lipase 372 H (23-300) U/L Procalcitonin (<0.5) ng/mL 01/31/19 Range/Units 18:10 WBC (4.5-11.0) X10^3/uL RBC (4.5-5.9) X10^6/uL Hgb (13.5-17.5) g/dL Hct (41-53) % MCV (80-100) fL MCH (26-34) PG MCHC (30-36) % RDW (11.6-14.8) % Plt Count (150-400) X10^3/uL Neut % (Auto) (50-75) % Lymph % (Auto) (25-40) % [place] % (Auto) (3-14) % Eos % (Auto) (2-4) % Baso % (Auto) (0-2) % Neut # (Auto) (2546-5923) /uL Lymph # (Auto) (2906-1591) /uL [place] # (Auto) (0-900) /uL Eos # (Auto) (0-450) /uL Baso # (Auto) (0-100) /uL PT (10.1-12.7) SECONDS INR (0.9-1.3) APTT (26.4-36.2) SECONDS Sodium (137-145) mmol/L Potassium (3.4-5.1) mmol/L Chloride (98-107) mmol/L Carbon Dioxide (22-32) mmol/L BUN (9-20) mg/dL Creatinine (0.66-1.25) mg/dL Estimated GFR (>60) mL/min BUN/Creatinine Ratio (6-22) Glucose (80-110) mg/dL Lactate 6.3 H* (0.7-2.1) mmol/L Calcium (8.4-10.2) mg/dL Total Bilirubin (0.2-1.3) mg/dL AST (17-59) IU/L ALT (<50) IU/L Alkaline Phosphatase (38-126) U/L Total Creatine Kinase (55-170) U/L CK-MB (CK-2) CK-MB (CK-2) Rel Index Troponin I (0.01-0.034) ng/mL B-Natriuretic Peptide (<100) Total Protein (6.3-8.2) g/dL Albumin (3.5-5.0) g/dL Globulin (1.7-4.1) g/dL Albumin/Globulin Ratio (1.0-2.8) Lipase (23-300) U/L Procalcitonin (<0.5) ng/mL Urine Dip Bedside Urine Glucose Negative Bedside Urine Bilirubin - Negative Bedside Urine Ketone +/- 5 Urine Specific [place] 1.030 Bedside Urine Occult Blood +/- Bedside Urine pH 5.5 Bedside Urine Protein ++ 100 Bedside Urine Urobilinogen - Negative Bedside Urine Nitrite - Negative Bedside Urine Leukocytes - Negative Esterase Imaging Data Chest x-ray: Radiologist's impression: PROCEDURE: XR CHEST 1V INDICATIONS: weakness TECHNIQUE: One view of the chest was acquired. COMPARISON: [facility], CHEST 2 VIEW, 06/16/2012, 14:58. [facility], CHEST 1 VIEW, 11/26/2014, 12:03. [facility], CHEST 2 VIEW, 12/31/2014, 13:09. [facility], CHEST 2 VIEW, 05/09/2015, 10:27. FINDINGS: Surgical changes and devices: Post CABG changes are seen. Lungs and pleura: Small bilateral pleural effusions are seen. No pneumothorax is seen. Low lung volumes are noted. This causes a crowded appearance to the lung markings and limits evaluation. Mediastinum: Mediastinal contours appear normal. Heart size is moderately enlarged. Atherosclerotic calcification of the aortic arch is noted. Bones and chest wall: No suspicious bony lesions. Age-appropriate bony degenerative changes are seen. Overlying soft tissues appear unremarkable. IMPRESSION: Small bilateral pleural effusions. Low lung volumes. Postoperative and degenerative changes are seen. Dictated by: Ricardo Roman M.D. on 01/31/2019 at 14:34 CT scan - head: Radiologist's impression: PROCEDURE: CT HEAD/BRAIN WO CON INDICATIONS: confusion slurred speech TECHNIQUE: Noncontrast 4.5 mm thick angled axial sections acquired from the foramen magnum to the vertex, with coronal and sagittal reformats. For radiation dose reduction, the following was used: automated exposure control, adjustment of mA and/or kV according to patient size. COMPARISON: [facility], CR, XR CHEST 1V, 01/31/2019, 15:11. FINDINGS: Image quality: Excellent. CSF spaces: Basal cisterns are patent. No extra-axial fluid collections. The ventricles are symmetric in size and shape. Brain: No intracranial bleeds or masses. There is cerebral volume loss for age, with resultant ventricular and sulcal prominence. There are periventricular and deep white matter chronic small vessel ischemic changes. There is intracranial internal carotid artery atherosclerosis. Skull and face: Calvarium and visualized facial bones appear intact, without suspicious lesions. Sinuses: Visualized sinuses and mastoids are clear. IMPRESSION: No acute intracranial hemorrhage is seen. No CT findings of stroke are detected. If there is strong clinical suspicion for an acute stroke, please consider an MRI for further evaluation, as it is more sensitive (assuming that there is no contraindication to MRI). Note is made of age-appropriate brain parenchymal volume loss and chronic small vessel ischemic changes. Dictated by: Ricardo Roman M.D. on 01/31/2019 at 14:52 ECG Data Attestation: I personally reviewed and interpreted this ECG as follows: Prior ECG tracings: available for review Interpretation: Sinus rhythm with right bundle-branch block rate [address] changes similar to previous MDM Narrative Medical decision making narrative: Patient has stable vitals he is maintaining oxygen level is at room air he is not hypotensive or tachycardic he has no leukocytosis. He does have mildly elevated procalcitonin 0.14 and significantly elevated lactic acid of 7.6. Lactic acid possibly due to dehydration or possible sepsis however he does not have other criteria. His creatinine function has worsened of baseline appears to be 2.2 today is 3.7. His potassium is also noted to be elevated at 6.0. He is given 2 L of IV fluid [place] catheters placed he has less than 5 mL of urine output. He clinically appears dry. He does not meet SIRS criteria is hemodynamically stable however based on end-organ damage of worsening renal failure significantly elevated lactate possible source of infection of diarrhea patient is empirically treated with Zosyn and vancomycin. He continues to be on LR, for fluid hydration. He continues to sat on room air his BNP significantly elevated is not seem to be in congestive heart failure, however he does have small bilateral pleural effusions on his x-ray. Repeat lactate is 6.3 it is improving he has started to urinate. He still does not show signs of acute fluid overload. Patient being transferred to [facility] for higher level of care Critical Care Time Critical Care Time Critical Care Time: Yes Total Critical Care Time: 45 Attestation: The high probability of a clinically significant, sudden or life threatening deterioration of the [cardiovascular] system(s) required my full and direct attention, intervention and personal management. The aggregate critical care time was [45] minutes. This time is in addition to time spent performing reported procedures but includes the following: [x] Data Review and interpretation [x] Patient assessment and monitoring of vital signs [x] Documentation [x] Medication orders and management Discharge Plan Departure [facility] Prescriptions: No Action [FOLIC ACID] 400 mcg PO DAILY Qty: 0 RF: 0 aspirin 325 MG tablet,delayed release (DR/EC) 325 mg PO QDAY Qty: 0 RF: 0 isosorbide mononitrate 30 MG tablet extended release 24 hr 10 - 15 mg PO QAM Qty: 30 RF: 11 Glucose: Test Strips Topical Q DAY Qty: 50 RF: 6 lisinopril 20 mg tablet 40 mg PO BID Qty: 360 RF: 1 metformin [Glucophage] 500 mg tablet 500 mg PO BIDCC Qty: 180 RF: 3 zolpidem 5 mg tablet 5 mg PO HS PRN (Reason: insomnia) Qty: 30 RF: 1 nitroglycerin [Nitrostat] 0.4 mg Tablet, Sublingual 0.4 mg SUBLINGUAL Q5M PRN (Reason: Chest Pain) RF: 0 trazodone 50 mg PO BEDTIME RF: 0 atenolol 100 mg Tablet 100 mg PO DAILY RF: 0
--- NOTE | 2019-01-31 15:47 | PC.NURSE ---
0.24 Troponin called to ER. Dr Richard notified. No orders at this time
[2019-01-31 15:58] LABS: B Type Natriuretic Peptide > 3630 (<100)
[2019-01-31 16:06] LABS: Lactate (Lactic Acid) 7.6 mmol/L (0.7-2.1)
[2019-01-31 16:07] LABS: HEMOLYSIS 35 (0-50)
[2019-01-31 16:09] LABS: Procalcitonin 0.14 ng/mL (<0.5)
[2019-01-31] MEDS: SODIUM CHLORIDE 0.9% 1,000 ML 999 ML IV (16:25)
[2019-01-31] MEDS: FUROSEMIDE 40 MG/4 ML VIAL IV (16:31)
[2019-01-31] MEDS: DEXTROSE 50 % IN WATER 25 GM/50 ML SYRINGE IV (16:31)
[2019-01-31] MEDS: INSULIN REGULAR 100 UNIT/ML 3 ML VIAL 10 UNIT IV (16:31)
[2019-01-31] MEDS: LACTATED RINGERS 500 ML IV (17:19)
--- NOTE | 2019-01-31 17:19 | PC.NURSE ---
Slowed bolus of LR down to 500ml/hr per verbal order from DR Richard. Patient respiratory rate mid 30's oxygen [id number]% on RA. Pt denies SOB
[2019-01-31 17:39] LABS: Reflexed Lactate in 2 Hours Y
[2019-01-31] MEDS: PIPERACILLIN-TAZO 3.375 GM/50 ML FROZ.PIGGY IV (18:12)
[2019-01-31] MEDS: VANCOMYCIN 1,000 MG/200 ML PIGGYBACK 200 MG IV (18:43)
[2019-01-31 18:45] LABS: Lactate 2HR (Lactic Acid Rflx) 6.3 mmol/L (0.7-2.1)
== END 2019-01-31 19:11 | disposition short-term general hospital (02) ==
PROVIDERS: Emergency Provider Emergency Medicine
DX: E86.0 Dehydration (principal); E78.5 Hyperlipidemia, unspecified; J90 Pleural effusion, not elsewhere classified; R41.0 Disorientation, unspecified; R47.81 Slurred speech; R53.1 Weakness
CPT/HCPCS: 36415; 70450; 71045; 80053; 81003; 82550; 83605; 83690; 83880; 84145; 84484; 85025; 85610; 85730; 87040; 93005; 96361; 96365; 96375; 99285; 99291; J1940; J2543